=== PATIENT | female | born 1985 ===

== ENCOUNTER 2025-01-17 06:28 | Day surgery (SDC) | payer OTHER, SELFPAY | END 2025-01-17 15:17 | disposition home or self-care (01) | LOC: GI 06:28 | PROVIDERS: ATTENDING PHYSICIAN Internal Medicine Gastroenterology | DX: Z12.11 Encounter for screening for malignant neoplasm of colon (principal); Z83.719 Family history of colon polyps, unspecified; K57.30 Diverticulosis of large intestine without perforation or abscess without bleeding; K64.0 First degree hemorrhoids | CPT/HCPCS: G0105 ==